=== PATIENT | female | born 1950 | race Two or more races ===

== ENCOUNTER 2020-08-15 08:47 | Outpatient (CLI) | payer OTHER | END 2020-08-15 08:54 | disposition home or self-care (01) | LOC: EDBD 08:47 → SONOGRAMA 08:47 | PROVIDERS: ATTEND Family Medicine | DX: Z12.39 Encounter for other screening for malignant neoplasm of breast (principal) ==

== ENCOUNTER 2021-01-20 13:57 | Outpatient (CLI) | payer OTHER | END 2021-01-20 14:00 | disposition home or self-care (01) | LOC: RAD 13:57 | PROVIDERS: ATTEND Orthopaedic Surgery | DX: M79.604 Pain in right leg (principal); M79.605 Pain in left leg ==